=== PATIENT | female | born 1950 | race Caucasian/White ===

== ENCOUNTER → 2020-08-25 | Outpatient (CLI) | payer MEDICARE, OTHER ==
[~2020-08-25] MED LIST: ECOTRIN81 MG PO; IMDUR ER TAB 3030 MG PO; NORCO 10-325 T1 EACH PO; NORCO 5-325 TA1 EACH PO; OMNICEF 300 MG300 MG PO; PRAVACHOL40 MG PO; RANITIDINE HCL150 MG PO; TOPROL XL25 MG PO; TORADOL 10 MG T10 MG PO; XANAX0.5 MG PO; ZANAFLEX4 MG PO
== END ==
LOC: EXRD 11:35
DX: M19.90 Unspecified osteoarthritis, unspecified site (principal); M85.812 Other specified disorders of bone density and structure, left shoulder
CPT/HCPCS: 73030

== ENCOUNTER → 2020-10-14 | Outpatient (CLI) | payer MEDICARE | LOC: KOH-I 10:10 → EXRD 10:30 | DX: M85.89 Other specified disorders of bone density and structure, multiple sites (principal); Z78.0 Asymptomatic menopausal state | CPT/HCPCS: 77080 ==

== ENCOUNTER → 2020-11-24 | Outpatient (CLI) | payer MEDICARE ==
[~2020-11-24] MED LIST changes: +FLOMAX 0.4 MG0.4 MG PO; +FLONASE 0.05% N16 GM; +HYDROCHLOROTH12.5 MG PO; +MONTELUKAST SOD10 MG PO; +PROTONIX 40 MG40 M1 PO
== END ==
LOC: HEART 5 07:30
DX: R53.83 Other fatigue (principal); R06.02 Shortness of breath; I25.2 Old myocardial infarction
CPT/HCPCS: 78452; 93306; A9502; J2785

== ENCOUNTER → 2020-12-03 | Outpatient (CLI) | payer MEDICARE ==
[2020-12-03 11:39] LABS: HEMOGLOBIN 12.4 gm/dl (12.3-15.3); RED BLOOD COUNT 3.91 M/UL (4.00-5.10); WHITE BLOOD COUNT 8.1 K/UL (4.5-11.0)
[2020-12-03 12:09] LABS: BUN/CREATININE RATIO 13 (0-10)
== END ==
LOC: LAB 11:04
PROVIDERS: Internal Medicine Interventional Cardiology
DX: I20.9 Angina pectoris, unspecified (principal); I10 Essential (primary) hypertension; E78.00 Pure hypercholesterolemia, unspecified; R06.02 Shortness of breath
CPT/HCPCS: 36415; 80048; 85025; 85610; 85730; 93005

== ENCOUNTER → 2020-12-14 | Outpatient (CLI) | payer MEDICARE | LOC: CATH 09:18 | DX: I20.8 Other forms of angina pectoris (principal); I11.9 Hypertensive heart disease without heart failure; I34.0 Nonrheumatic mitral (valve) insufficiency; J44.9 Chronic obstructive pulmonary disease, unspecified; E78.00 Pure hypercholesterolemia, unspecified; E55.9 Vitamin D deficiency, unspecified; D64.9 Anemia, unspecified; M19.90 Unspecified osteoarthritis, unspecified site; M54.9 Dorsalgia, unspecified; G89.29 Other chronic pain; I25.2 Old myocardial infarction; F41.9 Anxiety disorder, unspecified; Z79.82 Long term (current) use of aspirin; Z79.899 Other long term (current) drug therapy; Z90.710 Acquired absence of both cervix and uterus; Z98.890 Other specified postprocedural states; Z87.891 Personal history of nicotine dependence | CPT/HCPCS: 99152; C1769; J1644; J2250; J3010; J7040; Q9967 ==

== ENCOUNTER → 2021-01-04 | Outpatient (CLI) | payer MEDICARE | LOC: HEART 5 14:27 → EXRD 15:30 → HEART 5 01-06 14:30 | DX: R20.9 Unspecified disturbances of skin sensation (principal) ==

== ENCOUNTER → 2022-01-18 | Outpatient (CLI) | payer MEDICARE | LOC: KOH-I 12:44 | DX: M51.16 Intervertebral disc disorders with radiculopathy, lumbar region (principal); R07.9 Chest pain, unspecified; M47.816 Spondylosis without myelopathy or radiculopathy, lumbar region; R91.8 Other nonspecific abnormal finding of lung field | CPT/HCPCS: 71046; 72110 ==